=== PATIENT | female | born 1975 | race Caucasian/White ===

== ENCOUNTER 2016-12-05 10:45 | Emergency (ER) | payer BC, OTHER ==
[2016-12-05 10:54] VITALS: RESP 20
--- NOTE | 2016-12-05 11:17 | UCPHY ---
H & P Time Seen by Provider: 12/05/16 10:52 Patient Type: New HPI/ROS: 41-year-old female presents complaining of sudden onset of severe right flank pain at 8:00 a.m. radiating to right lower quadrant and right leg She has a prior history of kidney stones approximately 5 years ago. She states it feels similar to that. No nausea vomiting diarrhea fevers or chills She has a prior surgical history for appendectomy and cholecystectomy. Review of systems General no fever no chills no weakness HEENT no eye pain no eye discharge. No eye redness, no sore throat Respiratory no cough, no shortness of breath Cardiac no chest pain, no peripheral edema GI no abdominal pain, no diarrhea, no constipation, no nausea, no vomiting positive flank pain, no hematuria, no dysuria Musculoskeletal no myalgias, no joint pain Heme no easy bruising, no easy bleeding Endo no polyuria, no polydipsia Skin no rashes, no pruritus Neuro no syncope, no dizziness, no headaches Psych is no suicidal ideation, no homicidal ideation Past Medical/Surgical History: Kidney stone Status post appendectomy Status post cholecystectomy Social History: Denies alcohol or drug use Smoking Status: Never smoked Physical Exam: 41-year-old female alert and oriented , moderate distress secondary to right flank pain, afebrile nontoxic appearance HEENT atraumatic normocephalic, extraocular muscles intact, anicteric Oropharynx negative for erythema negative exudate, tolerating her own secretions Neck supple no meningismus Lungs clear to auscultation bilaterally Heart regular rate and rhythm without murmur rub or gallop Abdomen nondistended normoactive bowel sounds soft nontender Back no CVA tenderness, no step-offs, no spinal tenderness Extremities no cyanosis clubbing or edema Neuro alert and oriented, no focal deficits Constitutional: Initial Vital Signs Temperature (C) 37 C 12/05/16 10:47 Heart Rate 68 12/05/16 10:47 Respiratory Rate 20 12/05/16 10:47 Blood Pressure 151/91 H 12/05/16 10:47 O2 Sat (%) 97 12/05/16 10:47 O2 Delivery Mode Room Air Allergies/Adverse Reactions: No Known Allergies Allergy (Unverified 12/05/16 10:54) Home Medications: Medication Instructions Recorded Bcp 12/05/16 Hydrocodone/Acetaminophen [[place] 1 - 2 tab PO Q6H PRN #12 tab 12/05/16 5/325 (*)] Tamsulosin HCl [Flomax 0.4 MG (*)] 0.4 mg PO DAILY #14 cap 12/05/16 Medical Decision Making - Diagnostics Imaging Results: Imaging Impressions Abdomen/Pelvis CT 12/05/16 12:26 Impression: Small distal right ureteral calculus likely to pass spontaneously. Results discussed with Dr. Rodney 1:04 PM Attention: This CT examination is specifically designed to evaluate patients who are clinically suspected of having acute obstructive uropathy. This examination does not use radiographic contrast, and as such, provides only a limited evaluation of the abdomen, pelvis and retroperitoneum. If there is further clinical suspicion for pathological conditions other than obstructive uropathy, a complete CT evaluation of the abdomen and pelvis utilizing intravenous, oral, and rectal contrast should be considered. General information for patients regarding this examination can be found at [email or web address]. If you have questions or comments about this report, please contact me at [phone] (hospital) or [phone] (cell). ED Course/Re-evaluation: Patient seen and evaluated for acute right flank pain that began at 8:00 a.m. Differential diagnosis considered UTI, pyelonephritis, acute renal colic, acute biliary colic, peptic ulcer disease Urinalysis positive for blood no evidence of infection CBC CMP lipase is all within normal limits CT scan positive for right stone at UVJ without significant hydronephrosis Given IV fluids, morphine, Zofran, Toradol, Flomax in urgent care with marked improvement pain Impression Right ureterolithiasis Plan Home on Flomax, [place] Follow-up primary care physician Return as needed - Data Points Laboratory Results: Laboratory Results 12/05/16 11:50 12/05/16 11:50 12/05/16 12/05/16 12/05/16 Unknown 12:55 11:50 WBC RBC Hgb Hct MCV MCH MCHC RDW Plt Count MPV Neut % (Auto) Lymph % (Auto) [place] % (Auto) Eos % (Auto) Baso % (Auto) Nucleat RBC Rel Count Absolute Neuts (auto) Absolute Lymphs (auto) Absolute Monos (auto) Absolute Eos (auto) Absolute Basos (auto) Absolute Nucleated RBC Immature Gran % Immature Gran # Sodium 139 mEq/L mEq/L (134-144) Potassium 4.0 mEq/L mEq/L (3.5-5.2) Chloride 107 mEq/L mEq/L (97-110) Carbon Dioxide 17 mEq/l L mEq/l (22-31) Anion Gap 15 mEq/L mEq/L (8-16) BUN 7 mg/dL mg/dL (7-23) Creatinine 0.5 mg/dL L mg/dL (0.6-1.0) Estimated GFR > 60 Glucose 114 mg/dL H mg/dL (70-100) Calcium 8.6 mg/dL mg/dL (8.5-10.4) Total Bilirubin 0.7 mg/dL mg/dL (0.1-1.4) AST 20 IU/L IU/L (14-46) ALT 25 IU/L IU/L (9-52) Alkaline Phosphatase 94 IU/L IU/L (38-126) Total Protein 7.7 g/dL g/dL (6.3-8.2) Albumin 3.7 g/dL g/dL (3.5-5.0) Beta HCG, Qual NEGATIVE Beta HCG, Quant Cancelled Urine Color YELLOW Urine Appearance CLEAR Urine pH 6.0 (5.0-7.5) Ur Specific [place] 1.020 (1.002-1.030) Urine Protein NEGATIVE (NEGATIVE) Urine Ketones TRACE H (NEGATIVE) Urine Blood 3+ H (NEGATIVE) Urine Nitrate NEGATIVE (NEGATIVE) Urine Bilirubin NEGATIVE (NEGATIVE) Urine Urobilinogen 0.2 EU EU (0.2-1.0) Ur Leukocyte Esterase NEGATIVE (NEGATIVE) Urine RBC 25-50 /hpf H /hpf (0-3) Urine WBC 0-1 /hpf /hpf (0-3) Ur Epithelial Cells 1+ /lpf /lpf (NONE-1+) Urine Mucus 1+ /lpf /lpf (NONE-1+) Ur Culture Indicated? NOT INDICATED (NI) Urine Glucose NEGATIVE (NEGATIVE) 12/05/16 11:50 WBC 9.96 10^3/uL H 10^3/uL (3.80-9.50) RBC 4.88 10^6/uL 10^6/uL (4.18-5.33) Hgb 14.3 g/dL g/dL (12.6-16.3) Hct 41.2 % % (38.0-47.0) MCV 84.4 fL fL (81.5-99.8) MCH 29.3 pg pg (27.9-34.1) MCHC 34.7 g/dL g/dL (32.4-36.7) RDW 13.1 % % (11.5-15.2) Plt Count 190 10^3/uL 10^3/uL (150-400) MPV 9.6 fL fL (8.7-11.7) Neut % (Auto) 55.4 % % (39.3-74.2) Lymph % (Auto) 36.4 % % (15.0-45.0) [place] % (Auto) 6.1 % % (4.5-13.0) Eos % (Auto) 1.5 % % (0.6-7.6) Baso % (Auto) 0.4 % % (0.3-1.7) Nucleat RBC Rel Count 0.0 % % (0.0-0.2) Absolute Neuts (auto) 5.51 10^3/uL 10^3/uL (1.70-6.50) Absolute Lymphs (auto) 3.63 10^3/uL H 10^3/uL (1.00-3.00) Absolute Monos (auto) 0.61 10^3/uL 10^3/uL (0.30-0.80) Absolute Eos (auto) 0.15 10^3/uL 10^3/uL (0.03-0.40) Absolute Basos (auto) 0.04 10^3/uL 10^3/uL (0.02-0.10) Absolute Nucleated RBC 0.00 10^3/uL 10^3/uL (0-0.01) Immature Gran % 0.2 % % (0.0-1.1) Immature Gran # 0.02 10^3/uL 10^3/uL (0.00-0.10) Sodium Potassium Chloride Carbon Dioxide Anion Gap BUN Creatinine Estimated GFR Glucose Calcium Total Bilirubin AST ALT Alkaline Phosphatase Total Protein Albumin Beta HCG, Qual Beta HCG, Quant Urine Color Urine Appearance Urine pH Ur Specific [place] Urine Protein Urine Ketones Urine Blood Urine Nitrate Urine Bilirubin Urine Urobilinogen Ur Leukocyte Esterase Urine RBC Urine WBC Ur Epithelial Cells Urine Mucus Ur Culture Indicated? Urine Glucose Medications Given: Discontinued Medications Sodium Chloride (Ns) 1,000 mls @ 0 mls/hr IV ONCE ONE PRN Reason: Wide Open Stop: 12/05/16 11:19 Last Admin: 12/05/16 11:55 Dose: 1,000 mls Sodium Chloride (Ns) 1,000 mls @ 0 mls/hr IV ONCE ONE PRN Reason: Wide Open Stop: 12/05/16 12:27 Last Admin: 12/05/16 12:57 Dose: 1,000 mls Ketorolac Tromethamine (Toradol) 30 mg IVP EDNOW ONE Stop: 12/05/16 13:07 Last Admin: 12/05/16 13:18 Dose: 30 mg Morphine Sulfate (Morphine) 4 mg IVP EDNOW ONE Stop: 12/05/16 11:19 Last Admin: 12/05/16 11:55 Dose: 4 mg Ondansetron HCl (Zofran) 4 mg IVP EDNOW ONE Stop: 12/05/16 11:19 Last Admin: 12/05/16 11:56 Dose: 4 mg Tamsulosin HCl (Flomax) 0.4 mg PO EDNOW ONE Stop: 12/05/16 13:08 Last Admin: 12/05/16 13:17 Dose: 0.4 mg Departure - Departure Disposition: Home, Routine, Self-Care Clinical Impression: Ureterolithiasis Condition: Good Instructions: Kidney Stones (ED), How to Strain Your Urine (ED) Referrals: IRWIN JAMESON [Primary Care Provider] - As per Instructions Prescriptions: Hydrocodone/Acetaminophen [[place] 5/325 (*)] 1 - 2 tab PO Q6H PRN #12 tab PRN Reason: Pain, Moderate Tamsulosin HCl [Flomax 0.4 MG (*)] 0.4 mg PO DAILY #14 cap - PQRS PQRS Measurement: na
[2016-12-05] MEDS ORDERED: ONDANSETRON 4 MG/2 ML VIAL IVP ONE (11:18)
[2016-12-05] MEDS ORDERED: NS 1,000 ML IV ONE ×2 (11:18→12:26)
[2016-12-05 11:56] LABS: % IMMATURE GRANULYOCYTES 0.2 % (0.0-1.1); ABSOLUTE IMMATURE GRANULOCYTES 0.02 10^3/uL (0.00-0.10); ADD DIFF? NO; ADD MORPH? NO; ADD SCAN? NO; ATYPICAL LYMPHOCYTE FLAG 0 (0-99); FRAGMENT RBC FLAG 0 (0-99); HEMATOCRIT 41.2 % (38.0-47.0); HEMOGLOBIN 14.3 g/dL (12.6-16.3); LEFT SHIFT FLG 0 (0-99); LIPEMIA HEMOLYSIS FLAG 90 (0-99); MEAN CELL HEMOGLOBIN 29.3 pg (27.9-34.1); MEAN CELL HEMOGLOBIN CONCENTR. 34.7 g/dL (32.4-36.7); MEAN CELL VOLUME 84.4 fL (81.5-99.8); MEAN PLATELET VOLUME 9.6 fL (8.7-11.7); PLATELET CLUMPS FLAG 10 (0-99); PLATELET COUNT 190 10^3/uL (150-400); RED BLOOD CELL COUNT 4.88 10^6/uL (4.18-5.33); RED CELL DISTRIBUTION WIDTH 13.1 % (11.5-15.2)
[2016-12-05 12:09] LABS: ALANINE AMINOTRANSFERASE 25 IU/L (9-52); ALBUMIN 3.7 g/dL (3.5-5.0); ALKALINE PHOSPHATASE 94 IU/L (38-126); ANION GAP 15 mEq/L (8-16); ASPARTATE AMINOTRANSFERASE 20 IU/L (14-46); BILIRUBIN,TOTAL 0.7 mg/dL (0.1-1.4); CALCIUM 8.6 mg/dL (8.5-10.4); CARBON DIOXIDE 17 mEq/l (22-31); CHLORIDE 107 mEq/L (97-110); CREATININE 0.5 mg/dL (0.6-1.0); GLOMERULAR FILTRATION RATE > 60; GLUCOSE 114 mg/dL (70-100); SODIUM 139 mEq/L (134-144); TOTAL PROTEIN 7.7 g/dL (6.3-8.2)
[2016-12-05 12:59] LABS: COLOR YELLOW; LEUKOCYTE ESTERASE,URINE NEGATIVE (NEGATIVE); NITRITE,URINE NEGATIVE (NEGATIVE)
[2016-12-05] MEDS ORDERED: KETOROLAC 30 MG/1 ML SDV IVP ONE (13:06)
[2016-12-05] MEDS ORDERED: TAMSULOSIN HCL 0.4 MG CAP PO ONE (13:07)
[2016-12-05 13:10] LABS: MUCUS 1+ /lpf (NONE-1+); RBC,URINE 25-50 /hpf (0-3); WBC,URINE 0-1 /hpf (0-3)
[2016-12-05 13:52] VITALS: BP 133/80; PULSE 72; TEMP 97.9; O2SAT 94
== END 2016-12-05 13:52 | disposition home or self-care (01) ==
LOC: CED 10:45
DX: N20.1 Calculus of ureter (principal)
CPT/HCPCS: 74176-PO; 80053-PO; 81003-PO; 81015-PO; 84703-PO; 85025-PO; 96361-PO; 96374-PO; 96375-PO; G0463-PO; J1885; J2405